=== PATIENT | female | born 1970 | race African-American/Black ===

== ENCOUNTER 2024-11-12 00:16 | Emergency (ER) | payer OTHER, SELFPAY ==
[2024-11-12 00:21] VITALS: BP 97/42; BP 98/53; PULSE 70; PULSE 75; RESP 18; TEMP 36.8; O2SAT 99; BMI 24.7
[2024-11-12 00:38] VITALS: BP 93/52; PULSE 78; RESP 16; TEMP 36.7; O2SAT 98
--- NOTE | 2024-11-12 01:14 | ED_ITS ---
HPI - Nausea/Vomiting/Diarrhea General Chief complaint: Nausea/Vomiting/Diarrhea Stated complaint: N/V/D x8 Hours Time Seen by Provider: 11/12/24 01:13 Source: patient and family (, cousin's) Mode of arrival: EMS Limitations: no limitations History of Present Illness ED Provider: Dr. Bright Dodson HPI Narrative: 54-year-old female with no significant past medical history, surgical history of hysterectomy with 1 ovary removed presents emergency department for evaluation of nausea, vomiting, diarrhea and syncope. Patient states that yesterday morning she woke up with an upset stomach. She then developed nausea, vomiting and diarrhea. She states she vomited a proximally 4-5 times. She did not notice any blood in the emesis. She states she was had watery, nonbloody diarrheal stools greater than 10 episodes. Patient states that she had at least 2-3 episodes where she passed out after moving her bowels yesterday evening. The patient denied abdominal pain. She states she did have fever, chills, lightheadedness, dizziness and weakness. She denied chest pain, shortness of breath. The patient was on antibiotics 2 months prior for sinus infection. Patient has not traveled outside of the country. Patient's cousin is ill with similar symptoms. Patient was given Zofran 4 mg IV and started on normal saline IV by paramedics EN route to the hospital. Patient states that her nausea is improved but not resolved completely. Related Data Previous Rx's ?Medication ?Instructions ?Recorded ondansetron 4 mg disintegrating 4 mg PO Q6-8H PRN nausea and 11/12/24 tablet vomiting #14 tabs Allergies Allergy/AdvReac Type Severity Reaction Status Date / Time No Known Allergies Allergy Verified 11/12/24 00:43 Review of Systems 2 Review of Systems: Yes all other systems are reviewed and are negative PMFSH Social History Social History Smoked in Last 30 Days: No Use of substances other than those prescribed or required for medical reasons: No Advance Directives: No Advance Directives Information Provided: Yes Do you have a plan to hurt others: No Plan Patient : No Physical Exam 2 Vital Signs: Vital Signs: Last Vital Signs Temp 98.7 F 11/12/24 02:18 Pulse 87 11/12/24 02:18 Resp 12 11/12/24 02:18 BP 113/70 11/12/24 02:18 Pulse Ox 98 11/12/24 02:18 O2 Del Method Room Air 11/12/24 02:18 BMI result Body Mass Index 24.7 Vital signs were unremarkable. Exam: General: Awake, alert in no distress Head: Normocephalic, atraumatic EENT: PERRL, Lids normal, sclera normal, conjunctiva normal, nose normal , ears normal, throat without erythema or exudates Neck: Supple, no adenopathy Lung: breath sounds symmetric, no wheezing, rales or rhonchi Chest: symmetric movement, nontender Heart: regular rate and rhythm, normal S1, S2 no murmurs or rubs Abdomen: soft, non-tender, nondistended, normal bowel sounds Back: no vertebral tenderness, no CVAT Extremities: no deformities, moves all extremities symmetrically Neuro: Awake, alert, oriented, normal speech, cranial nerves intact, moves all extremities symmetrically Psych: Pleasant, cooperative Medications Administered Discontinued Medications Generic Name Dose Route Start Last Admin Trade Name Freq PRN Reason Stop Dose Admin Diphenhydramine HCl 25 mg 11/12/24 01:51 11/12/24 02:03 Diphenhydramine Hcl 50 Mg/Ml Vial IVPUSH 11/12/24 01:52 25 mg ONCE ONE Administration Sodium Chloride 1,000 mls @ 999 mls/hr 11/12/24 01:51 11/12/24 01:57 Ns IV 11/12/24 02:51 999 mls/hr .Q1H1M STA Administration Loperamide HCl 2 mg 11/12/24 01:51 11/12/24 02:03 Loperamide Hcl 2 Mg Capsule PO 11/12/24 01:52 2 mg ONCE ONE Administration Metoclopramide HCl 10 mg 11/12/24 01:51 11/12/24 02:03 Metoclopramide Hcl 10 Mg/2 Ml Vial IVPUSH 11/12/24 01:52 10 mg ONCE STA Administration Medical Decision Making Medical Decision Making MDM Narrative: 54-year-old female with no significant past medical history, surgical history of hysterectomy with 1 ovary removed presents emergency department for evaluation of nausea, vomiting, diarrhea and syncope. Patient had 3-4 episodes of vomiting and greater than 10 episodes of nonbloody, watery diarrhea. She complained of fever chills, lightheadedness, dizziness and weakness and had 3 syncopal episodes after having diarrhea. Patient was vital signs were unremarkable. Physical examination was normal. Differential diagnosis: ?Includes but is not limited to viral syndrome, gastroenteritis, C difficile colitis, electrolyte abnormalities, anemia Course: 02:06 The patient received Zofran 4 mg IV and was started on normal saline x1 L by the paramedics. The patient was ordered to get a 2 L of normal saline IV given her weakness, dizziness and multiple syncopal episodes. Patient had persistent nausea after getting Zofran 4 mg IV by paramedics therefore she was given Reglan 10 mg IV and Benadryl 25 mg IV. 03:08 Patient was feeling significantly better after the above treatment. Patient was discharged home with a prescription for Zofran 4 mg ODT every 8 hours as needed for nausea and vomiting. She was also advised to take Imodium for her diarrhea. She was given printed and verbal instructions and discharged home. Admission/Observation Consideration of admission/observation: Escalation of care including admission/observation considered (Yes) Lab Data MDM Lab Attestation statement: I reviewed the patient's lab results. My interpretation of the patient's laboratory evaluation is as follows: CBC was normal. CMP was normal. Lipase was below detectable limits. 11/12/24 02:08 11/12/24 02:09 Labs: Lab Results 11/12/24 11/12/24 Range/Units 02:08 02:09 WBC 8.2 (4.8-10.8) X10*3/uL RBC 4.17 L (4.20-5.50) X10*6/uL Hgb 13.6 (12.0-16.0) g/dl Hct 39.9 (37.0-47.0) % MCV 95.7 (80.0-98.0) fL MCH 32.6 (27.0-33.0) pg MCHC 34.1 (31.0-35.0) g/dl RDW 12.2 (11.0-16.0) % Plt Count 191 (160-400) X10*3/uL MPV 10.6 (9.4-12.3) fL Immature Gran % (Auto) 0.2 (0.0-0.4) % Neut % (Auto) 82.5 H (45-73) % Lymph % (Auto) 7.8 L (20-40) % [place] % (Auto) 8.3 (2-11) % Eos % (Auto) 1.1 (0-4) % Baso % (Auto) 0.1 (0-2) % Lymph # (Auto) 0.6 L (1.2-4.9) X10*3/uL [place] # (Auto) 0.7 (0.1-1.2) X10*3/uL Eos # (Auto) 0.1 (0.0-0.4) X10*3/uL Baso # (Auto) 0.0 (0.0-0.2) X10*3/uL Abs Immat Gran (auto) 0.02 (0.00-0.03) X10*3/uL Absolute Neuts (auto) 6.7 (2.0-8.3) x10*3/uL Absolute Nucleated RBC 0.000 (0.0-0.012) X10*3/uL Nucleated RBC % (auto) 0.0 (0.0-0.2) /100WBC Sodium 140 (135-145) mmol/L Potassium 4.1 (3.3-5.1) mmol/L Chloride 111 H (96-108) mmol/L Carbon Dioxide 23 (22-29) mmol/L Anion Gap 10 L (12-20) BUN 18 H (9-16) mg/dL Creatinine 0.79 (0.5-1.4) mg/dL Estim Creat Clear Calc 77.1 Estimated GFR > 60 Random Glucose 96 (60-115) mg/dL Calcium 8.5 (8.4-10.2) mg/dL Magnesium 1.9 (1.6-2.6) mg/dL Total Bilirubin 0.5 (0.0-1.0) mg/dL AST 28 (5-31) U/L ALT 24 (0-31) U/L Total Protein 6.7 (6.5-8.0) g/dL Albumin 3.7 (3.5-5.0) g/dL Lipase 16 (8-78) U/L Independent Historian Clinical information obtained from an independent historian. History obtained from or confirmed by: Spouse Prescription Management I considered prescription management with: Other (Antiemetic, Zofran) Discharge Plan Discharge Clinical Impression: Viral syndrome, Volume depletion Nausea & vomiting Qualifiers: Vomiting type: unspecified Qualified Code(s): R11.2 - Nausea with vomiting, unspecified Diarrhea Qualifiers: Diarrhea type: unspecified type Qualified Code(s): R19.7 - Diarrhea, unspecified Syncope Qualifiers: Syncope type: vasovagal syncope Qualified Code(s): R55 - Syncope and collapse Patient Disposition: Home, Self-Care Instructions: Viral Syndrome (ED) Additional Instructions: Your blood work was unremarkable. Your symptoms are consistent with a viral infection causing your nausea vomiting and diarrhea. This caused her to be very dehydrated which made you pass out several times. You were treated here in the emergency department with 2 L of IV fluid and an antinausea medicine called Reglan (metoclopramide) and Benadryl. Take Zofran ODT 4 mg pills, 1 pill dissolved in your mouth every 8 hours as needed for nausea and vomiting. For the next 24 hours, stay on a JOSUE diet (bananas, rice, applesauce, tea and toast). Follow-up with your doctor in 2 days. Please return to the emergency department if your symptoms get worse or if you develop any symptoms that are concerning to you. Prescriptions: New ondansetron 4 mg tablet,disintegrating 4 mg PO Q6-8H PRN (Reason: nausea and vomiting) Qty: 14 0RF Print Language: Burkinan
[2024-11-12] MEDS: 0.9 % Sodium Chloride 1,000 ML 999 ML IV (01:57)
[2024-11-12] MEDS: Metoclopramide HCl 10 MG/2 ML VIAL IVPUSH (02:03)
[2024-11-12] MEDS: Loperamide HCl 2 MG CAPSULE PO (02:03)
[2024-11-12] MEDS: diphenhydrAMINE HCL 50 MG/ML VIAL 25 MG IVPUSH (02:03)
[2024-11-12 02:14] LABS: Basophils Percent Auto 0.1 % (0-2); Eosinophils Absolute Auto 0.1 X10*3/uL (0.0-0.4); Eosinophils Percent Auto 1.1 % (0-4); Hematocrit 39.9 % (37.0-47.0); Hemoglobin 13.6 g/dl (12.0-16.0); Imm Gran Abs Auto 0.02 X10*3/uL (0.00-0.03); Imm Gran Pct Auto 0.2 % (0.0-0.4); Lymphocytes Absolute Auto 0.6 X10*3/uL (1.2-4.9); Lymphocytes Percent Auto 7.8 % (20-40); MANUAL DIFF FLAG NO; Mean Corpuscular HGB Conc 34.1 g/dl (31.0-35.0); Mean Corpuscular Hemoglobin 32.6 pg (27.0-33.0); Mean Corpuscular Volume 95.7 fL (80.0-98.0); Mean Platelet Volume 10.6 fL (9.4-12.3); Monocytes Absolute Auto 0.7 X10*3/uL (0.1-1.2); Monocytes Percent Auto 8.3 % (2-11); Neutrophils Absolute Auto 6.7 x10*3/uL (2.0-8.3); Neutrophils Percent Auto 82.5 % (45-73); Platelet Count 191 X10*3/uL (160-400); Red Blood Count 4.17 X10*6/uL (4.20-5.50); Red Cell Distribution Width 12.2 % (11.0-16.0); White Blood Count 8.2 X10*3/uL (4.8-10.8)
[2024-11-12 02:18] VITALS: BP 113/70; PULSE 87; RESP 12; TEMP 37.1; O2SAT 98
[2024-11-12 02:34] LABS: Alanine Aminotransferase 24 U/L (0-31); Albumin Level 3.7 g/dL (3.5-5.0); Anion Gap 10 (12-20); Aspartate Amino Transferase 28 U/L (5-31); Bilirubin Total 0.5 mg/dL (0.0-1.0); Blood Urea Nitrogen 18 mg/dL (9-16); Calcium 8.5 mg/dL (8.4-10.2); Carbon Dioxide 23 mmol/L (22-29); Chloride 111 mmol/L (96-108); Creatinine Clr Calc Pharmacy 77.1; Estimated Glomerular Filt Rate > 60; Glucose Random 96 mg/dL (60-115); Lipase 16 U/L (8-78); Magnesium 1.9 mg/dL (1.6-2.6); Potassium 4.1 mmol/L (3.3-5.1); Sodium 140 mmol/L (135-145); Total Protein 6.7 g/dL (6.5-8.0)
[2024-11-12 03:28] LABS: Alkaline Phosphatase 94 U/L (39-117)
[2024-11-12 03:41] VITALS: BP 107/51; PULSE 78; RESP 15; TEMP 37.1; O2SAT 98
[2024-11-12 03:49] VITALS: BP 107/51; PULSE 78; RESP 15; TEMP 37.1; O2SAT 98
== END 2024-11-12 03:52 | disposition home or self-care (01) ==
PROVIDERS: Emergency Provider Emergency Medicine Emergency Medical Services
DX: R11.2 Nausea with vomiting, unspecified (principal); B34.9 Viral infection, unspecified; R55 Syncope and collapse; R19.7 Diarrhea, unspecified; Z79.899 Other long term (current) drug therapy
CPT/HCPCS: 36415; 80053; 83690; 83735; 85025; 96361; 96374; 96375; 99284; J1200; J2765